=== PATIENT | female | born 1940 | race African-American/Black ===

== ENCOUNTER 2018-11-01 21:55 | Emergency (ER) | payer MEDICARE, MEDICAID ==
[~2018-11-01] VITALS: Ht 157.5 cm; Wt 66.0 kg
[2018-11-02] MEDS ORDERED: IBUPROFEN 600MG TABLET PO ONE
[2018-11-02 02:11] VITALS: BP 137/52
== END 2018-11-02 02:12 | disposition home or self-care (01) ==
LOC: ER 21:55
DX: M25.561 Pain in right knee (principal); I10 Essential (primary) hypertension; J44.9 Chronic obstructive pulmonary disease, unspecified; W01.0XXA Fall on same level from slipping, tripping and stumbling without subsequent striking against object, initial encounter; Y93.89 Activity, other specified; Y92.89 Other specified places as the place of occurrence of the external cause; Z88.0 Allergy status to penicillin
CPT/HCPCS: 73562; 99283